=== PATIENT | female | born 1980 | race Caucasian/White ===

== ENCOUNTER 2017-08-17 19:39 | Emergency (ER) | payer OTHER ==
[~2017-08-17] VITALS: Ht 182.9 cm; Wt 95.9 kg
[~2017-08-17 19:39] MED LIST: BIRTH CONTROL PILL; CLONAZEPAM0.5 MG PO; LEXAPRO10 MG; NOVOLOG100 UNIT/1 SQ; OMEPRAZOLE20 M2; OMEPRAZOLE20 MG PO; PRAVACHOL20 MG; SEASONALE,JO1 TABLET
[2017-08-17 20:21] LABS: HEMATOCRIT 40.5 % (36.0-46.0); MCH 30.5 PG (29.0-34.0); MCHC 35.1 G/DL (30.0-36.0); MCV 86.9 FL (83-99); MEAN PLAT.VOLUME 9.6 uM^3 (9.5-12.4); PLATELET COUNT 255 K/uL (156-360); RBC DIS.WIDTH-CV 11.9 % (11.8-14.6); RBC DIS.WIDTH-SD 37.8 % (39-53); RED BLOOD COUNT 4.66 M/uL (3.80-5.20); WHITE BLOOD COUNT 8.2 K/uL (4.1-10.2)
[2017-08-17 20:34] LABS: CHLORIDE 107 mEq/L (99-109); POTASSIUM 3.8 mEq/L (3.7-5.4); SODIUM 138 mEq/L (136-147)
[2017-08-17 20:36] LABS: GLUCOSE 261 mg/dL (70-99)
[2017-08-17 20:37] LABS: ANION GAP 8 MEQ/L (2-14)
[2017-08-17 20:40] LABS: GFR ESTIMATE (CALCULATED) 49 mL/min/
[2017-08-17 20:41] LABS: UREA NITROGEN (BUN) 15 mg/dL (9-23)
[2017-08-17 20:43] LABS: D-DIMER ELISA < 150.00 ng/mLDDU (<230)
[2017-08-17 20:48] LABS: QUANTITATIVE HCG < 4.0 MIU/ML
[2017-08-17 21:16] LABS: TROP-I INTERPRETATION NEGATIVE; TROPONIN-I < 0.01 ng/mL (0.0-0.30)
[2017-08-17] MEDS ORDERED: AUGMENTIN875 MG PO (21:58)
[2017-08-17 22:14] VITALS: BP 156/91
== END 2017-08-17 22:25 | disposition home or self-care (01) ==
LOC: EME 19:39
PROVIDERS: Nurse Practitioner Family; Physician Assistant
DX: R00.2 Palpitations (principal); J18.9 Pneumonia, unspecified organism; E11.9 Type 2 diabetes mellitus without complications; Z79.4 Long term (current) use of insulin; Z79.3 Long term (current) use of hormonal contraceptives; Z83.3 Family history of diabetes mellitus; Z82.49 Family history of ischemic heart disease and other diseases of the circulatory system; N32.81 Overactive bladder; K21.9 Gastro-esophageal reflux disease without esophagitis; F41.9 Anxiety disorder, unspecified; R56.9 Unspecified convulsions
CPT/HCPCS: 71020; 80048; 84484; 84702; 85027; 85379; 93005; 99281; 99285

== ENCOUNTER 2017-08-31 06:36 | Day surgery (SDC) | payer OTHER ==
[~2017-08-31] VITALS: Ht 180.3 cm; Wt 92.9 kg
[~2017-08-31 06:36] MED LIST changes: +AUGMENTIN875 MG PO; +LO-DOSE ASPIRIN81 M2 PO; +NEXIUM40 MG PO; +TOPAMAX25 MG PO; +VALTREX50 MG/ML PO; +WELLBUTRIN XL300 MG PO; +ZYRTEC10 M2 PO
[2017-08-31 07:06] LABS: POINT-OF-CARE METER ID UU14174212
[2017-08-31 07:12] VITALS: BP 123/73
[2017-08-31] MEDS ORDERED: ULTRAM50 MG PO (09:36)
[2017-08-31 09:45] LABS: POINT-OF-CARE METER ID UU13113675
[2017-08-31 10:38] VITALS: BP 112/68
[2017-08-31 11:28] VITALS: BP 107/66
== END 2017-08-31 11:35 | disposition home or self-care (01) ==
LOC: SDC 06:36
PROVIDERS: Surgery
DX: D17.1 Benign lipomatous neoplasm of skin and subcutaneous tissue of trunk (principal); E10.65 Type 1 diabetes mellitus with hyperglycemia; E78.5 Hyperlipidemia, unspecified; K21.9 Gastro-esophageal reflux disease without esophagitis; R00.2 Palpitations; Z96.41 Presence of insulin pump (external) (internal); Z79.4 Long term (current) use of insulin; E53.8 Deficiency of other specified B group vitamins; E55.9 Vitamin D deficiency, unspecified; Z88.2 Allergy status to sulfonamides; Z79.82 Long term (current) use of aspirin
CPT/HCPCS: 82948; 88304; J0690; J2405; J2765; J3010